=== PATIENT | male | born 1975 | race African-American/Black ===

== ENCOUNTER 2020-02-14 12:15 | Observation (INO) ==
[2020-02-14] MEDS ORDERED: SODIUM CHLORIDE 0.9% 500 ML IV STA (12:16)
[2020-02-14 13:04] LABS: Basophils % 0.4 % (0.0-0.8); Eosinophils % 0.8 % (0.00-10.9); Hematocrit 23.6 VOL% (42.0-52.0); Hemoglobin 7.6 GM/DL (14.0-18.0); Immature Granulocytes % 0.4 %; Immature Granulocytes Absolute 0.01 #; Lymphocytes # 0.7 10*3/uL (1.4-4.0); Lymphocytes % 25.4 % (21.2-54.2); Mean Corpuscular HGB Conc 32.2 GM/DL (32-36); Mean Platelet Volume 11.2 FL (9.6-12.0); Monocytes % 12.9 % (1.7-12.7); Neutrophils % 60.1 % (38.7-73.9); Platelet Count 102 T/CUMM (130-400); Red Blood Count 2.51 MC/CUMM (3.8-5.5); Red Cell Distribution Width 14.5 % (9.3-17.3); White Blood Count 2.6 T/CUMM (4-12)
[2020-02-14] MEDS ORDERED: PANTOPRAZOLE 40 MG VIAL IV STA (13:07)
[2020-02-14 13:18] LABS: INR 1.7; PT Patient Result 17.7 SECS (9.8-11.9); Partial Thromboplastin Time 33.9 SECS (23.9-33.8)
[2020-02-14 14:02] LABS: Bilirubin,Total 0.7 MG/DL (0.2-1.0); Calcium 8.3 MG/DL (8.5-10.1); Total Protein 6.5 G/DL (6.4-8.3)
[2020-02-14 14:27] LABS: Basophils % 0.4 % (0.0-0.8); Eosinophils % 1.2 % (0.00-10.9); Hematocrit 23.6 VOL% (42.0-52.0); Hemoglobin 7.5 GM/DL (14.0-18.0); Immature Granulocytes % 0.4 %; Immature Granulocytes Absolute 0.01 #; Lymphocytes # 0.7 10*3/uL (1.4-4.0); Lymphocytes % 25.8 % (21.2-54.2); Mean Corpuscular HGB Conc 31.8 GM/DL (32-36); Mean Platelet Volume 10.9 FL (9.6-12.0); Monocytes % 14.8 % (1.7-12.7); Neutrophils % 57.4 % (38.7-73.9); Platelet Count 101 T/CUMM (130-400); Red Blood Count 2.51 MC/CUMM (3.8-5.5); Red Cell Distribution Width 14.5 % (9.3-17.3); White Blood Count 2.6 T/CUMM (4-12)
[2020-02-14] MEDS ORDERED: POTASSIUM CHLORIDE 20 MEQ TABLET PO STA (14:34)
[2020-02-14] MEDS ORDERED: MAGNESIUM SULF RIDER 4 GM in PREMIX 1 EACH IV STA (14:34)
[2020-02-14 14:56] LABS: Folate 14.9 NG/ML (5.4-24.0); Vitamin B12 265 PG/ML (211-911)
[2020-02-14 15:22] LABS: % Iron Saturation 8.3 % (18-50)
[2020-02-14 16:39] LABS: Sedimentation Rate-Westergren 30 MM/HR (0-15)
[2020-02-14] MEDS ORDERED: GLUCAGON 1 MG VIAL IM PRN (17:15)
[2020-02-14] MEDS ORDERED: ONDANSETRON 4 MG/2 ML VIAL IV PRN (17:15)
[2020-02-14] MEDS ORDERED: DEXTROSE 50% 25 GM/50 ML VIAL IV PRN (17:15)
[2020-02-14] MEDS ORDERED: MAGNESIUM SULF RIDER 4 GM in PREMIX 1 EACH IV PRN (17:42)
[2020-02-14 18:09] LABS: Bilirubin,Urine Negative (Negative); Blood, Urine Negative (Negative); Calcium Oxalate Crystals,Urine Few /HPF (Few); Glucose,Urine (UA) >=500 mg/dL (Negative); Ketones,Urine Negative (Negative); Mucus,Urine Occasional /LPF (Occasional); Nitrite,Urine Negative (Negative); Protein,Urine Negative; RBC,Urine 1 /HPF (0-4); Urine Appearance CLEAR (Clear); Urine Color Amber (Yellow); Urine Specific Gravity 1.022 (1.001-1.035); WBC,Urine <1 /HPF (0-6)
[2020-02-14 18:14] LABS: Barbiturates Screen,Urine Negative (Negative); Benzodiazepines Screen,Urine Negative (Negative); Cannabinoid Screen,Urine Negative (Negative); Opiate Screen,Urine Negative (Negative); Phencyclidine Screen,Urine Negative (Negative)
[2020-02-14] MEDS: SODIUM CHLORIDE 0.9% 1,000 ML IV SCH (18:30)
[2020-02-14] MEDS ORDERED: LORazepam 2 MG/1 ML VIAL IV PRN (18:32)
[2020-02-14] MEDS ORDERED: SODIUM CHLORIDE 0.9% 1,000 ML IV PRN (18:33)
[2020-02-14] MEDS ORDERED: diphenhydrAMINE CAP 25 MG CAPSULE PO ONE ×2 (18:34→21:00)
[2020-02-14 19:22] LABS: Hematocrit 22.6 VOL% (42.0-52.0); Hemoglobin 7.2 GM/DL (14.0-18.0)
[2020-02-14] MEDS: INSULIN LISPRO 100 UNIT/ML SUBCUT SCH (22:29)
[2020-02-14] MEDS: GABAPENTIN 600 MG TABLET PO SCH (22:29)
[2020-02-14] MEDS: traZODone 50 MG TABLET PO SCH (22:30)
[2020-02-14] MEDS: METOPROLOL TARTRATE 50 MG TABLET PO SCH (22:30)
[2020-02-14] MEDS: metFORMIN 500 MG TABLET PO SCH (22:30)
[2020-02-15] MEDS: QUEtiapine 100 MG TABLET PO SCH ×2 (00:46→21:18)
[2020-02-15] MEDS: ACETAMINOPHEN 325 MG TABLET PO PRN (00:47)
[2020-02-15 02:02] LABS: Hemoglobin 6.9 GM/DL (14.0-18.0)
[2020-02-15] MEDS: SODIUM CHLORIDE 0.9% 1,000 ML IV SCH ×3 (05:30→17:25)
[2020-02-15 06:01] LABS: Basophils % 0.7 % (0.0-0.8); Eosinophils # 0.1 10*3/uL (0.0-0.87); Eosinophils % 1.8 % (0.00-10.9); Hematocrit 24.4 VOL% (42.0-52.0); Immature Granulocytes % 0.4 %; Immature Granulocytes Absolute 0.01 #; Lymphocytes # 0.8 10*3/uL (1.4-4.0); Lymphocytes % 29.1 % (21.2-54.2); Mean Corpuscular HGB Conc 32.8 GM/DL (32-36); Mean Corpuscular Volume 93.1 FL (87-102); Mean Platelet Volume 10.6 FL (9.6-12.0); Monocytes % 13.8 % (1.7-12.7); Neutrophils % 54.2 % (38.7-73.9); Platelet Count 97 T/CUMM (130-400); Red Blood Count 2.62 MC/CUMM (3.8-5.5); Red Cell Distribution Width 14.2 % (9.3-17.3); White Blood Count 2.8 T/CUMM (4-12)
[2020-02-15 06:28] LABS: Hypochromasia 1+; Lymphocytes 30 % (20-55); Platelet Estimate Decreased; Segmented Neutrophils 51 % (50-85); Total Cells Counted 100
[2020-02-15 06:29] LABS: Atypical Lymphocytes Few
[2020-02-15 06:36] LABS: Albumin 2.8 G/DL (3.4-5.0); Bilirubin,Total 1.4 MG/DL (0.2-1.0); Calcium 8.3 MG/DL (8.5-10.1); Risk Ratio 2.6; Thyroid Stimulating Hormone 2.92 uIU/ml (0.358-3.74); VLDL CHOLESTEROL 11.8 MG/DL
[2020-02-15] MEDS ORDERED: GLUCAGON 1 MG VIAL IM PRN ×2 (07:29→11:17)
[2020-02-15] MEDS ORDERED: DEXTROSE 50% 25 GM/50 ML VIAL IV PRN ×2 (07:29→11:17)
[2020-02-15 08:43] LABS: Hemoglobin A1 (Alkaline) 97.4 % (96.5-98.5); Hemoglobin A2 (Alkaline) 2.6 % (1.5-3.5)
[2020-02-15] MEDS: INSULIN LISPRO 100 UNIT/ML SUBCUT SCH ×3 (08:44→16:02)
[2020-02-15] MEDS: CYANOCOBALAMIN 1000 MCG/1 ML VIAL IM SCH (08:46)
[2020-02-15] MEDS: GABAPENTIN 600 MG TABLET PO SCH ×3 (08:48→21:17)
[2020-02-15] MEDS: metFORMIN 500 MG TABLET PO SCH ×2 (08:48→16:21)
[2020-02-15] MEDS: ESCITALOPRAM 10 MG TABLET PO SCH (08:49)
[2020-02-15] MEDS: POTASSIUM CHLORIDE 20 MEQ TABLET PO PRN ×4 (08:50→18:05)
[2020-02-15] MEDS: METOPROLOL TARTRATE 50 MG TABLET PO SCH ×2 (08:50→21:18)
[2020-02-15] MEDS: MULTIVITAMIN (CENTRUM) TABLET PO SCH (08:53)
[2020-02-15] MEDS ORDERED: PANTOPRAZOLE 40 MG VIAL IV SCH (09:00)
[2020-02-15 11:32] LABS: Hematocrit 30.6 VOL% (42.0-52.0); Hemoglobin 9.9 GM/DL (14.0-18.0)
[2020-02-15] MEDS: MAGNESIUM SULF RIDER 2 GM in PREMIX 1 EACH IV PRN (14:05)
[2020-02-15] MEDS: traZODone 50 MG TABLET PO SCH (21:18)
[2020-02-15] MEDS: PANTOPRAZOLE 40 MG VIAL IV SCH (21:19)
[2020-02-16 06:43] LABS: Basophils % 0.5 % (0.0-0.8); Eosinophils # 0.1 10*3/uL (0.0-0.87); Eosinophils % 1.8 % (0.00-10.9); Hematocrit 27.7 VOL% (42.0-52.0); Hemoglobin 8.7 GM/DL (14.0-18.0); Immature Granulocytes % 0.3 %; Immature Granulocytes Absolute 0.01 #; Lymphocytes # 1.4 10*3/uL (1.4-4.0); Lymphocytes % 35.9 % (21.2-54.2); Mean Corpuscular HGB Conc 31.4 GM/DL (32-36); Mean Corpuscular Volume 94.2 FL (87-102); Mean Platelet Volume 10.5 FL (9.6-12.0); Monocytes % 12.1 % (1.7-12.7); Neutrophils % 49.4 % (38.7-73.9); Platelet Count 152 T/CUMM (130-400); Red Blood Count 2.94 MC/CUMM (3.8-5.5); White Blood Count 3.8 T/CUMM (4-12)
[2020-02-16 07:09] LABS: Eosinophils 4 % (0-10); Lymphocytes 41 % (20-55); Platelet Estimate Adequate; Segmented Neutrophils 48 % (50-85); Total Cells Counted 100
[2020-02-16 07:10] LABS: Atypical Lymphocytes Few; Hypochromasia 1+; Microcytosis 1+
[2020-02-16 07:26] LABS: Albumin 2.9 G/DL (3.4-5.0); Bilirubin,Total 0.8 MG/DL (0.2-1.0); Calcium 8.6 MG/DL (8.5-10.1); Osmolality,Calculated 278.4 MOS/KG (273-304); Total Protein 6.5 G/DL (6.4-8.3)
[2020-02-16] MEDS: SODIUM CHLORIDE 0.9% 1,000 ML IV SCH ×4 (07:44→17:15)
[2020-02-16] MEDS ORDERED: LACTATED RINGERS 1,000 ML IV SCH (08:00)
[2020-02-16] MEDS: INSULIN LISPRO 100 UNIT/ML SUBCUT SCH ×4 (08:08→16:17)
[2020-02-16] MEDS ORDERED: LIDOCAINE 2% 5 ML VIAL ONE (09:00)
[2020-02-16] MEDS ORDERED: propofoL 200 MG/20 ML VIAL IV ONE (09:00)
[2020-02-16] MEDS: IRON SUCROSE 200 MG in SODIUM CHLORIDE 0.9% 100 ML IV SCH (10:06)
[2020-02-16] MEDS: PANTOPRAZOLE 40 MG VIAL IV SCH ×2 (10:07→21:34)
[2020-02-16] MEDS: CYANOCOBALAMIN 1000 MCG/1 ML VIAL IM SCH (10:07)
[2020-02-16] MEDS: METOPROLOL TARTRATE 50 MG TABLET PO SCH ×2 (10:14→21:33)
[2020-02-16] MEDS: THIAMINE 100 MG TABLET PO SCH (10:14)
[2020-02-16] MEDS: GABAPENTIN 600 MG TABLET PO SCH ×3 (10:14→21:33)
[2020-02-16] MEDS: MULTIVITAMIN (CENTRUM) TABLET PO SCH (10:14)
[2020-02-16] MEDS: ESCITALOPRAM 10 MG TABLET PO SCH (10:15)
[2020-02-16] MEDS ORDERED: GLUCAGON 1 MG VIAL IM PRN (13:44)
[2020-02-16] MEDS ORDERED: DEXTROSE 50% 25 GM/50 ML VIAL IV PRN (13:44)
[2020-02-16] MEDS: MAGNESIUM SULF RIDER 2 GM in PREMIX 1 EACH IV PRN (14:59)
[2020-02-16] MEDS: QUEtiapine 100 MG TABLET PO SCH (21:33)
[2020-02-16] MEDS: traZODone 50 MG TABLET PO SCH (21:33)
[2020-02-17 06:14] LABS: Basophils % 0.4 % (0.0-0.8); Eosinophils # 0.1 10*3/uL (0.0-0.87); Eosinophils % 2.6 % (0.00-10.9); Hematocrit 25.4 VOL% (42.0-52.0); Hemoglobin 8.1 GM/DL (14.0-18.0); Immature Granulocytes % 0.4 %; Immature Granulocytes Absolute 0.01 #; Lymphocytes # 1.1 10*3/uL (1.4-4.0); Lymphocytes % 39.3 % (21.2-54.2); Mean Corpuscular HGB Conc 31.9 GM/DL (32-36); Mean Corpuscular Volume 94.4 FL (87-102); Mean Platelet Volume 10.4 FL (9.6-12.0); Monocytes % 11.2 % (1.7-12.7); Neutrophils % 46.1 % (38.7-73.9); Platelet Count 128 T/CUMM (130-400); Red Blood Count 2.69 MC/CUMM (3.8-5.5); Red Cell Distribution Width 14.7 % (9.3-17.3); White Blood Count 2.7 T/CUMM (4-12)
[2020-02-17 06:37] LABS: Atypical Lymphocytes Few; Eosinophils 1 % (0-10); Hypochromasia 1+; Lymphocytes 40 % (20-55); Microcytosis Slight; Ovalocytes Slight; Platelet Estimate Normal; Segmented Neutrophils 53 % (50-85); Total Cells Counted 100
[2020-02-17 06:40] LABS: Prealbumin 5.3 MG/DL (20-40)
[2020-02-17 06:42] LABS: Albumin 2.6 G/DL (3.4-5.0); Bilirubin,Total 0.5 MG/DL (0.2-1.0); Calcium 8.1 MG/DL (8.5-10.1); Total Protein 5.8 G/DL (6.4-8.3)
[2020-02-17] MEDS: INSULIN LISPRO 100 UNIT/ML SUBCUT SCH ×5 (07:28→21:12)
[2020-02-17] MEDS: SODIUM CHLORIDE 0.9% 1,000 ML IV SCH ×2 (07:51→20:21)
[2020-02-17] MEDS: THIAMINE 100 MG TABLET PO SCH (08:34)
[2020-02-17] MEDS: ESCITALOPRAM 10 MG TABLET PO SCH (08:34)
[2020-02-17] MEDS: GABAPENTIN 600 MG TABLET PO SCH ×3 (08:34→21:09)
[2020-02-17] MEDS: IRON SUCROSE 200 MG in SODIUM CHLORIDE 0.9% 100 ML IV SCH (08:35)
[2020-02-17] MEDS: PANTOPRAZOLE 40 MG VIAL IV SCH ×2 (08:48→21:09)
[2020-02-17] MEDS: MULTIVITAMIN (CENTRUM) TABLET PO SCH (08:48)
[2020-02-17] MEDS: CYANOCOBALAMIN 1000 MCG/1 ML VIAL IM SCH (08:52)
[2020-02-17] MEDS: METOPROLOL TARTRATE 50 MG TABLET PO SCH ×2 (09:45→21:09)
[2020-02-17] MEDS: ACETAMINOPHEN 325 MG TABLET PO PRN ×2 (14:53→21:13)
[2020-02-17 15:48] LABS: INR 1.4; PT Patient Result 15.1 SECS (9.8-11.9)
[2020-02-17] MEDS: traZODone 50 MG TABLET PO SCH (21:09)
[2020-02-17] MEDS: QUEtiapine 100 MG TABLET PO SCH (21:09)
[2020-02-18 05:32] LABS: Basophils % 0.6 % (0.0-0.8); Eosinophils # 0.1 10*3/uL (0.0-0.87); Eosinophils % 2.1 % (0.00-10.9); Hematocrit 29.1 VOL% (42.0-52.0); Hemoglobin 9.2 GM/DL (14.0-18.0); Immature Granulocytes % 0.6 %; Immature Granulocytes Absolute 0.02 #; Lymphocytes # 1.2 10*3/uL (1.4-4.0); Lymphocytes % 35.5 % (21.2-54.2); Mean Corpuscular HGB Conc 31.6 GM/DL (32-36); Mean Corpuscular Volume 95.4 FL (87-102); Mean Platelet Volume 10.7 FL (9.6-12.0); Monocytes % 12.3 % (1.7-12.7); Neutrophils % 48.9 % (38.7-73.9); Platelet Count 141 T/CUMM (130-400); Red Blood Count 3.05 MC/CUMM (3.8-5.5); Red Cell Distribution Width 14.7 % (9.3-17.3); White Blood Count 3.3 T/CUMM (4-12)
[2020-02-18 05:47] LABS: Albumin 2.9 G/DL (3.4-5.0); Bilirubin,Direct 0.31 MG/DL (0.0-0.20); Bilirubin,Total 1.3 MG/DL (0.2-1.0); Total Protein 6.7 G/DL (6.4-8.3)
[2020-02-18 07:02] LABS: Albumin 2.9 G/DL (3.4-5.0); Bilirubin,Total 0.7 MG/DL (0.2-1.0); Calcium 8.8 MG/DL (8.5-10.1); Osmolality,Calculated 279.3 MOS/KG (273-304); Total Protein 6.7 G/DL (6.4-8.3)
[2020-02-18] MEDS: PANTOPRAZOLE 40 MG VIAL IV SCH ×2 (09:16→20:58)
[2020-02-18] MEDS: CYANOCOBALAMIN 1000 MCG/1 ML VIAL IM SCH (09:19)
[2020-02-18] MEDS: IRON SUCROSE 200 MG in SODIUM CHLORIDE 0.9% 100 ML IV SCH (09:19)
[2020-02-18] MEDS: GABAPENTIN 600 MG TABLET PO SCH ×3 (09:20→20:56)
[2020-02-18] MEDS: MULTIVITAMIN (CENTRUM) TABLET PO SCH (09:20)
[2020-02-18] MEDS: THIAMINE 100 MG TABLET PO SCH (09:20)
[2020-02-18] MEDS: ESCITALOPRAM 10 MG TABLET PO SCH (09:21)
[2020-02-18] MEDS: POTASSIUM CHLORIDE 20 MEQ TABLET PO PRN (09:21)
[2020-02-18] MEDS: INSULIN LISPRO 100 UNIT/ML SUBCUT SCH ×4 (09:22→20:55)
[2020-02-18] MEDS: METOPROLOL TARTRATE 50 MG TABLET PO SCH ×2 (10:27→20:56)
[2020-02-18] MEDS: ACETAMINOPHEN 325 MG TABLET PO PRN (20:56)
[2020-02-18] MEDS: QUEtiapine 100 MG TABLET PO SCH (20:56)
[2020-02-18] MEDS: traZODone 50 MG TABLET PO SCH (20:58)
[2020-02-18] MEDS: SODIUM CHLORIDE 0.9% 1,000 ML IV SCH (21:45)
[2020-02-19] MEDS: SODIUM CHLORIDE 0.9% 1,000 ML IV SCH (04:09)
[2020-02-19 04:14] VITALS: BP 108/66
[2020-02-19] MEDS: INSULIN LISPRO 100 UNIT/ML SUBCUT SCH (09:15)
== END 2020-02-19 10:08 | disposition home health service (06) ==
LOC: EDUNIT# → EDBD → N.ED 12:15 → N.EDINP 12:15 → SUATTDRO 17:15 → N.EDINP 18:03 → N.4E 18:07
PROVIDERS: ADMIT Internal Medicine; ATTEND Internal Medicine